=== PATIENT | male | born 1955 | race Caucasian/White ===

== ENCOUNTER 2018-06-12 07:59 | Inpatient (IN) | payer OTHER ==
[2018-06-12] MEDS ORDERED: NS 1,000 ML IV ONE (08:03)
--- NOTE | 2018-06-12 08:11 | EDPHY ---
H & P Time Seen by Provider: 06/12/18 08:03 HPI/ROS: Chief complaint. Stroke activation HPI. 62-year-old male here by EMS with complaint of facial droop, some right- sided weakness, difficulty with speech in following commands. Onset of symptoms 6:30 a.m. Patient had gotten up to go to work at 5:00 a.m. And was normal. He was at work when symptoms started. He is quite certain that symptoms started at 6:30 a.m.. Patient developed what he describes as dizziness to the right eye. No headache. He was confused and having word finding difficulty. Possibly he had some right-sided weakness as well. Patient has had similar symptoms in January 2014 he had left visual field deficit with a normal workup. It resolved and the diagnosis was a typical migraine verses TIA. He arrives per EMS with stable vital signs and symptoms continuing. Patient tells me he has no chest discomfort or trouble breathing. No abdominal pain. He is not on blood thinners ROS 10 systems were reviewed and negative with the exception of the elements mentioned in the history of present illness Past Medical/Surgical History: Past medical history migraines and arthritis of the knee with knee surgery Social History: Single, nonsmoker, no alcohol Smoking Status: Never smoked Physical Exam: General Appearance: Alert well-developed male with stable vital signs in moderate distress Eyes: Pupils equal and round no pallor or injection. ENT, Mouth: Mucous membranes are moist. Respiratory: There are no retractions, lungs are clear to auscultation. Cardiovascular: Regular rate and rhythm. Gastrointestinal: Abdomen is soft and nontender, no masses, bowel sounds normal. Neurological: Awake and alert, sensory and motor exams grossly normal. Patient has word finding difficulty. I do not appreciate facial droop. He moves all extremities however when I asked him to touch might index finger with his index finger and then touches nose with each hand he then touches my index finger with his thumb. He does not follow commands to touch his nose. No obvious weakness to legs. Skin: Warm and dry, no rashes. Musculoskeletal: Neck is supple nontender. Extremities symmetrical, full range of motion. Psychiatric: Patient is oriented X 3, there is no agitation. Constitutional: Initial Vital Signs Temperature (C) 36.5 C 06/12/18 08:12 Heart Rate 75 06/12/18 08:12 Respiratory Rate 18 06/12/18 08:12 Blood Pressure 148/93 H 06/12/18 08:12 O2 Sat (%) 97 06/12/18 08:12 O2 Delivery Mode Room Air Allergies/Adverse Reactions: No Known Allergies Allergy (Verified 06/12/18 09:49) Home Medications: Medication Instructions Recorded Naratriptan HCl [Amerge] 1 mg PO BID PRN #10 tablet 01/28/14 Naproxen Sodium [Aleve 220 MG (*)] 220 mg PO BID PRN 06/12/18 Sodium Chloride 5% [Mitesh-128 5% 1 tue EACHEYE DAILY 06/12/18 (*)] Medical Decision Making - Diagnostics EKG Interpretation: EKG interpreted by me shows normal sinus rhythm normal interval and axis. QRS is normal there is no significant ST elevation or depression. There is no arrhythmia. The rate is 70 Imaging Results: Imaging Impressions Chest X-Ray 06/12/18 08:04 Impression: Mild peribronchial thickening, which can be seen with bronchitis / airways disease or mild fluid overload. Head CT 06/12/18 08:04 Impression: 1. Normal CT brain without contrast. 2. Consider MRI of the brain, if there is continued clinical concern. Findings and recommendations discussed with Emergency Department physician, ANIRUDH CM at 8:13 hour, 06/12/2018. Final report concurs with initial preliminary interpretation. Head CTA 06/12/18 08:29 Impression: 1. No carotid atherosclerotic disease, flow-limiting stenosis, occlusion or dissection. 2. Patent vertebrobasilar system without occlusion or dissection. Measurement of carotid stenosis is based on the residual internal carotid diameter with [place] Symptomatic Carotid Endarterectomy Trial (NASCET) based stenosis levels. CT Angiogram of the Brain Clinical Indications: CVA Technique: CT angiogram of the brain and neck was performed with the uneventful intravenous administration of 85 mL Isovue-370 contrast. Multiplanar reconstructions including 3D reconstructions performed and evaluated on [employer] workstation in order to better evaluate the [place] vessels. Images were manipulated by the radiologist at the computer workstation. Dose reduction techniques were utilized. Findings: Major vessels of the [place] are adequately displayed, demonstrating no evidence of aneurysm, vascular malformation, flow-limiting stenosis, or occlusion. Bilateral cavernous internal carotid arteries and vertebrobasilar system demonstrate occlusion of a distal left MCA M2-3 branch. However, the major proximal vessels including bilateral internal carotid arteries, vertebrobasilar system, bilateral posterior cerebral arteries, bilateral anterior cerebral arteries, and the proximal branches of bilateral M1 middle cerebral arteries are patent without additional thrombus. Superior sagittal sinus, transverse sinuses, and major veins demonstrate no evidence of intraluminal thrombi. Impression: 1. Left MCA distal branch M2/M3 occlusion. 2. No additional proximal occlusions or intraluminal thrombi. 3. Patent bilateral ICA and vertebrobasilar system. Findings and recommendations discussed with Emergency Department physician, Anirudh Cm, at 9:23 a.m., 06/12/2018. Final report concurs with initial preliminary interpretation. Neck CTA 06/12/18 08:29 Impression: 1. No carotid atherosclerotic disease, flow-limiting stenosis, occlusion or dissection. 2. Patent vertebrobasilar system without occlusion or dissection. Measurement of carotid stenosis is based on the residual internal carotid diameter with [place] Symptomatic Carotid Endarterectomy Trial (NASCET) based stenosis levels. CT Angiogram of the Brain Clinical Indications: CVA Technique: CT angiogram of the brain and neck was performed with the uneventful intravenous administration of 85 mL Isovue-370 contrast. Multiplanar reconstructions including 3D reconstructions performed and evaluated on [employer] workstation in order to better evaluate the [place] vessels. Images were manipulated by the radiologist at the computer workstation. Dose reduction techniques were utilized. Findings: Major vessels of the [place] are adequately displayed, demonstrating no evidence of aneurysm, vascular malformation, flow-limiting stenosis, or occlusion. Bilateral cavernous internal carotid arteries and vertebrobasilar system demonstrate occlusion of a distal left MCA M2-3 branch. However, the major proximal vessels including bilateral internal carotid arteries, vertebrobasilar system, bilateral posterior cerebral arteries, bilateral anterior cerebral arteries, and the proximal branches of bilateral M1 middle cerebral arteries are patent without additional thrombus. Superior sagittal sinus, transverse sinuses, and major veins demonstrate no evidence of intraluminal thrombi. Impression: 1. Left MCA distal branch M2/M3 occlusion. 2. No additional proximal occlusions or intraluminal thrombi. 3. Patent bilateral ICA and vertebrobasilar system. Findings and recommendations discussed with Emergency Department physician, Anirudh Cm, at 9:23 a.m., 06/12/2018. Final report concurs with initial preliminary interpretation. Noncontrast head CT shows no hemorrhage in no obvious dense MCA sign. Reviewed by me and discussed with Radiology CT head and neck show a small clot distal branches the M2/M3 occlusion. Reviewed by me and discussed with Procedures: Patient is examined initially on the EMS stretcher. He is then sent to CT. ED Course/Re-evaluation: I consulted discussed the case with Dr. Shields for [facility]. Dr. Dolan also examines the patient and takes history from the patient. Dr. Shields discusses use of tPA with the patient. The patient expresses understanding. Dr. Shields then recommends tPA. Is at about 8:30 a.m. TPA is started. Patient will then be sent back to Radiology for CT angio of head and neck. If there is a large vessel thrombus we will transfer the patient for thrombectomy. On serial evaluations patient is improving. His speech is better. He no longer has visual change in the right eye. He has no headache. He is becoming more neurologically normal Patient and I discussed imaging lab studies. We discussed treatment plan including the recommendation for tPA and then admission. He expresses understanding and agreement Patient's ex- arrives and I reviewed the case with her at her ex-'s permission I consulted and discussed the case with , hospitalist, who agrees to the admission Differential Diagnosis: I considered CVA, TIA, intracranial bleeding, atypical migraine. We opted to treat the patient as a CVA with tPA as the concern was that this is not a atypical migraine which she has had previously and we lose are window of treatment opportunity Critical Care Time: Critical care time exclusive procedures 40 min - Data Points Laboratory Results: Laboratory Results 06/12/18 08:00 06/12/18 08:00 06/12/18 06/12/18 06/12/18 08:37 08:07 08:00 WBC RBC Hgb POC Hgb 16.3 gm/dL gm/dL (13.7-17.5) Hct POC Hct 48 % % (40-51) MCV MCH MCHC RDW Plt Count MPV Neut % (Auto) Lymph % (Auto) [place] % (Auto) Eos % (Auto) Baso % (Auto) Nucleat RBC Rel Count Absolute Neuts (auto) Absolute Lymphs (auto) Absolute Monos (auto) Absolute Eos (auto) Absolute Basos (auto) Absolute Nucleated RBC Immature Gran % Immature Gran # PT INR POC Sodium 141 mEq/L mEq/L (135-145) Sodium 138 mEq/L mEq/L (135-145) POC Potassium 3.8 mEq/L mEq/L (3.3-5.0) Potassium 4.3 mEq/L mEq/L (3.3-5.0) POC Chloride 102 mEq/L mEq/L (97-110) Chloride 104 mEq/L mEq/L (97-110) Carbon Dioxide 25 mEq/l mEq/l (22-31) Anion Gap 9 mEq/L mEq/L (6-14) POC BUN 20 mg/dL mg/dL (7-23) BUN 19 mg/dL mg/dL (7-23) Creatinine 0.9 mg/dL mg/dL (0.7-1.3) POC Creatinine 0.9 mg/dL mg/dL (0.7-1.3) Estimated GFR > 60 Glucose 121 mg/dL H mg/dL (70-100) POC Glucose 118 mg/dL H mg/dL (70-100) Calcium 9.3 mg/dL mg/dL (8.5-10.4) POC Troponin I 0.00 ng/mL ng/mL (0.00-0.08) 06/12/18 06/12/18 08:00 08:00 WBC 5.00 10^3/uL 10^3/uL (3.80-9.50) RBC 5.45 10^6/uL 10^6/uL (4.40-6.38) Hgb 16.3 g/dL g/dL (13.7-17.5) POC Hgb Hct 48.8 % % (40.0-51.0) POC Hct MCV 89.5 fL fL (81.5-99.8) MCH 29.9 pg pg (27.9-34.1) MCHC 33.4 g/dL g/dL (32.4-36.7) RDW 12.5 % % (11.5-15.2) Plt Count 186 10^3/uL 10^3/uL (150-400) MPV 10.1 fL fL (8.7-11.7) Neut % (Auto) 50.4 % % (39.3-74.2) Lymph % (Auto) 28.2 % % (15.0-45.0) [place] % (Auto) 17.4 % H % (4.5-13.0) Eos % (Auto) 2.6 % % (0.6-7.6) Baso % (Auto) 0.8 % % (0.3-1.7) Nucleat RBC Rel Count 0.0 % % (0.0-0.2) Absolute Neuts (auto) 2.52 10^3/uL 10^3/uL (1.70-6.50) Absolute Lymphs (auto) 1.41 10^3/uL 10^3/uL (1.00-3.00) Absolute Monos (auto) 0.87 10^3/uL H 10^3/uL (0.30-0.80) Absolute Eos (auto) 0.13 10^3/uL 10^3/uL (0.03-0.40) Absolute Basos (auto) 0.04 10^3/uL 10^3/uL (0.02-0.10) Absolute Nucleated RBC 0.00 10^3/uL 10^3/uL (0-0.01) Immature Gran % 0.6 % % (0.0-1.1) Immature Gran # 0.03 10^3/uL 10^3/uL (0.00-0.10) PT 12.6 SEC SEC (12.0-15.0) INR 0.92 (0.83-1.16) POC Sodium Sodium POC Potassium Potassium POC Chloride Chloride Carbon Dioxide Anion Gap POC BUN BUN Creatinine POC Creatinine Estimated GFR Glucose POC Glucose Calcium POC Troponin I Medications Given: Discontinued Medications Alteplase, Recombinant (Activase) 75.33 mg 0.81 mg/kg (75.33 mg) IV ONCE ONE PRN Reason: Protocol Stop: 06/12/18 08:30 Last Admin: 06/12/18 08:35 Dose: 75.33 mg Alteplase, Recombinant (Activase) 50 mg IVP EDNOW ONE Stop: 06/12/18 08:30 Last Admin: 06/12/18 08:49 Dose: 50 mg Sodium Chloride (Ns) 1,000 mls @ 0 mls/hr IV ONCE ONE; Wide Open PRN Reason: Protocol Stop: 06/12/18 08:04 Last Admin: 06/12/18 08:20 Dose: 1,000 mls Point of Care Test Results: Chemistry 06/12/18 06/12/18 08:37 08:07 POC Sodium 141 mEq/L mEq/L (135-145) POC Potassium 3.8 mEq/L mEq/L (3.3-5.0) POC Chloride 102 mEq/L mEq/L (97-110) POC BUN 20 mg/dL mg/dL (7-23) POC Creatinine 0.9 mg/dL mg/dL (0.7-1.3) POC Glucose 118 mg/dL H mg/dL (70-100) POC Troponin I 0.00 ng/mL ng/mL (0.00-0.08) ISTAT H&H 06/12/18 08:07 POC Hgb 16.3 gm/dL gm/dL (13.7-17.5) POC Hct 48 % % (40-51) Departure - Departure Disposition: [facility] Inpatient Acute Clinical Impression: Acute ischemic stroke, Visual field cut Condition: Good
[2018-06-12 08:19] LABS: PLATELET COUNT 186 10^3/uL (150-400)
[2018-06-12 08:27] LABS: INR 0.92 (0.83-1.16); PROTIME(PATIENT) 12.6 SEC (12.0-15.0)
[2018-06-12] MEDS ORDERED: ALTEPLASE 100 MG/100 ML VIAL IV ONE ×2 (08:29)
[2018-06-12] MEDS ORDERED: IOPAMIDOL (ISOVUE 370) 100 ML BTL IV ONE (08:31)
--- NOTE | 2018-06-12 08:33 | PDCONSULT ---
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 He has a normal head CT time of eval. He is having some intermittent issues following commands but otherwise with good neurological exam. He woke up at 5:00 am normal. At 6:30 he felt right face and arm "water" (which is not the word he was trying to say). Possible tPA candidate: :00 am [facility]-- Past Medical History: Migraine Past Surgical History: knee surgery Exam Language: expressive aphasia, mild comprehension difficulty as well Cranial Nerves: extra ocular movements intact, no facial droop Motor: normal strength, normal bulk, no drift Sensory: normal sensation Cerebellar: normal finger nose NIHSS Time (): 06/12/2018 08:20 LOC 1a: 0 = Alert; keenly responsive LOC 1b: 1 = Answers one question correctly LOC Commands: 0 = Performs both tasks correctly Best Gaze: 0 = Normal Visual: 0 = No visual loss Facial Palsy: 0 = Normal symmetrical movements Motor Arm L: 0 = No drift; limb holds 90 (or 45) degrees for full 10 seconds Motor Arm R: 0 = No drift; limb holds 90 (or 45) degrees for full 10 seconds Motor Leg L: 0 = No drift; leg holds 30-degree position for full 5 seconds Motor Leg R: 0 = No drift; leg holds 30-degree position for full 5 seconds Limb Ataxia: 0 = Absent Sensory: 0 = Normal; no sensory loss Best Language: 1 = Ctle-fa-ggvdzozb aphasia; some obvious loss of fluency or facility of comprehension Dysarthria: 0 = Normal Extinction + Inattention: 0 = No abnormality NIHSS: [address]: no bleed Assessment: Acute Ischemic Stroke, less likely migraine equivalent without headache. Plan Lytic/Intervention: possible candidate for, IA intervention Time IV tPA Recommended (): 06/12/2018 08:25 Labs: HgbA1c, Lipid Panel Imaging: CTA Head and Neck STAT, Please call me back with results TRICIA if there are signs of occlusion or dissection Diagnostic test: echocardiogram with bubble Therapy/Eval: NPO until cleared by swallow evaluation, PT/OT, Speech/Swallow therapy consult tPA Administration Recommendations: I have reviewed the risks/benefits of tPA with family &/or patient. They understand that there is a potential of life threatening hemorrhagic complication from tPA, but feel that benefits outweigh risks and want to proceed with administration of tPA, BP goal< 180/100 for 24hrs post tPA administration, Use Labetolol 10-20mg IV prn or Nicardipine gtt to maintain BP parameters, No antiplatelets or anticoagulants for next 24 hrs unless indicated for emergent IA procedure or other life threatening situation, ICU admission, Call back if there is any decline in neurological condition Other: LDL goal less than 70, permissive HTN, telemetry monitoring, I have discussed my recommendations with the referring provider Disposition: transfer to ICU Logistics Telemedicine: Interactive 2 way audio and visual telecommunication technology was utilized during this visit. Provider Location: [place]
[2018-06-12] MEDS: ALTEPLASE 50 MG/50 ML VIAL IVP ONE ×2 (08:34→08:49)
[2018-06-12] MEDS ORDERED: LABETALOL HCL 5 MG/ML 20 ML MDV IVP PRN (11:00)
--- NOTE | 2018-06-12 12:44 | PDGENHP ---
History and Physical - Chief Complaint right arm weakness, trouble speaking - History of Present Illness 62yo M with history of migraines with aura presents with acute onset difficulty speaking, right blurry vision, and right arm weakness/discoordination. These symptoms started at 630am. He woke up 5am and was normal. He had been in usual state of health before this. EMS was called and he was brought to the ED where CTA of his head/neck showed a thrombus in his distal L MCA (M2/M3). Tele- neurology was consulted and he received systemic tpa at 835am. His symptoms have dramatically improved afterwards but he is still endorsing some trouble speaking and intermittent right blurry vision. He is being admitted to the ICU for post-tpa monitoring. Of note, he was hospitalized in 2013 for vision changes felt to be due to either migraine or TIA. CTA head/neck and TTE at that time were normal. He has no history of afib. History Information - Allergies/Home Medication List Allergies/Adverse Reactions: No Known Allergies Allergy (Verified 06/12/18 09:49) Home Medications: Naproxen Sodium [Aleve 220 MG (*)] 220 mg PO BID PRN 06/12/18 [Last Taken Unknown] Sodium Chloride 5% [Mitesh-128 5% (*)] 1 ute EACHEYE DAILY 06/12/18 [Last Taken Unknown] I have personally reviewed and updated: family history, medical history, social history, surgical history - Past Medical History Additional medical history: migraines with aura, recurrent R eye erosion - Surgical History Additional surgical history: Right knee arthroscopy - Family History Additional family history: No family history of CAD or CVA - Social History Smoking Status: Never smoked Alcohol Use: Rarely Drug Use: None Additional social history: Lives alone in [place]. 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) Review of Systems Review of Systems: ROS: 10pt was reviewed & negative except for what was stated in HPI & below Physical Exam Physical Exam: Temp Pulse Resp BP Pulse Ox 36.7 C 75 16 132/84 H 97 06/12/18 10:22 06/12/18 12:15 06/12/18 12:15 06/12/18 12:15 06/12/18 12:15 Constitutional: no apparent distress, appears nourished, not in pain Eyes: PERRL, anicteric sclera, EOMI Ears, Nose, Mouth, Throat: moist mucous membranes, hearing normal, ears appear normal, no oral mucosal ulcers Cardiovascular: regular rate and rhythym, no murmur, rub, or gallop, No edema Respiratory: no respiratory distress, no rales or rhonchi, clear to auscultation Gastrointestinal: normoactive bowel sounds, soft, non-tender abdomen, no palpable masses Genitourinary: no bladder fullness, no bladder tenderness Skin: warm, normal color, no rashes or abrasions, no fluctuance, no induration, No mottled Musculoskeletal: full muscle strength, no muscle tenderness, normal joint ROM, no joint effusions Neurologic: AAOx3, sensation intact bilaterally, CN II-XII Intact, other ( intermittent syntactical errors but otherwise fluid speech), No weakness, No numbness, No pronator drift, No asterixes, No facial droop Psychiatric: interacting appropriately, not anxious, not encephalopathic, thought process linear Lab Data & Imaging Review 06/12/18 08:00 06/12/18 08:00 WBC 5.00 10^3/uL (3.80-9.50) 06/12/18 08:00 RBC 5.45 10^6/uL (4.40-6.38) 06/12/18 08:00 Hgb 16.3 g/dL (13.7-17.5) 06/12/18 08:00 POC Hgb 16.3 gm/dL (13.7-17.5) 06/12/18 08:07 Hct 48.8 % (40.0-51.0) 06/12/18 08:00 POC Hct 48 % (40-51) 06/12/18 08:07 MCV 89.5 fL (81.5-99.8) 06/12/18 08:00 MCH 29.9 pg (27.9-34.1) 06/12/18 08:00 MCHC 33.4 g/dL (32.4-36.7) 06/12/18 08:00 RDW 12.5 % (11.5-15.2) 06/12/18 08:00 Plt Count 186 10^3/uL (150-400) 06/12/18 08:00 MPV 10.1 fL (8.7-11.7) 06/12/18 08:00 Neut % (Auto) 50.4 % (39.3-74.2) 06/12/18 08:00 Lymph % (Auto) 28.2 % (15.0-45.0) 06/12/18 08:00 [place] % (Auto) 17.4 % (4.5-13.0) H 06/12/18 08:00 Eos % (Auto) 2.6 % (0.6-7.6) 06/12/18 08:00 Baso % (Auto) 0.8 % (0.3-1.7) 06/12/18 08:00 Nucleat RBC Rel Count 0.0 % (0.0-0.2) 06/12/18 08:00 Absolute Neuts (auto) 2.52 10^3/uL (1.70-6.50) 06/12/18 08:00 Absolute Lymphs (auto) 1.41 10^3/uL (1.00-3.00) 06/12/18 08:00 Absolute Monos (auto) 0.87 10^3/uL (0.30-0.80) H 06/12/18 08:00 Absolute Eos (auto) 0.13 10^3/uL (0.03-0.40) 06/12/18 08:00 Absolute Basos (auto) 0.04 10^3/uL (0.02-0.10) 06/12/18 08:00 Absolute Nucleated RBC 0.00 10^3/uL (0-0.01) 06/12/18 08:00 Immature Gran % 0.6 % (0.0-1.1) 06/12/18 08:00 Immature Gran # 0.03 10^3/uL (0.00-0.10) 06/12/18 08:00 PT 12.6 SEC (12.0-15.0) 06/12/18 08:00 INR 0.92 (0.83-1.16) 06/12/18 08:00 POC Sodium 141 mEq/L (135-145) 06/12/18 08:07 Sodium 138 mEq/L (135-145) 06/12/18 08:00 POC Potassium 3.8 mEq/L (3.3-5.0) 06/12/18 08:07 Potassium 4.3 mEq/L (3.3-5.0) 06/12/18 08:00 POC Chloride 102 mEq/L (97-110) 06/12/18 08:07 Chloride 104 mEq/L (97-110) 06/12/18 08:00 Carbon Dioxide 25 mEq/l (22-31) 06/12/18 08:00 Anion Gap 9 mEq/L (6-14) 06/12/18 08:00 POC BUN 20 mg/dL (7-23) 06/12/18 08:07 BUN 19 mg/dL (7-23) 06/12/18 08:00 Creatinine 0.9 mg/dL (0.7-1.3) 06/12/18 08:00 POC Creatinine 0.9 mg/dL (0.7-1.3) 06/12/18 08:07 Estimated GFR > 60 06/12/18 08:00 Glucose 121 mg/dL (70-100) H 06/12/18 08:00 POC Glucose 118 mg/dL (70-100) H 06/12/18 08:07 Calcium 9.3 mg/dL (8.5-10.4) 06/12/18 08:00 POC Troponin I 0.00 ng/mL (0.00-0.08) 06/12/18 08:37 Interpretation: CT head non-con: normal. CTA head/neck: left MCA distal branch M2/M3 occlusion, patent bilateral ICA and vertebrobasilar systems Visualized and Interpreted EKG results: Yes EKG additional interpertation: ECG: NSR, no ischemia Assessment & Plan Assessment: 62yo M with history of migraines with aura presents with acute onset difficulty speaking, right blurry vision, and right arm weakness/discoordination found to have distal L MCA occluding thrombus now s/p tpa. Plan: 1. Acute ischemic CVA: Symptoms improved but not resolved after systemic tpa. Still with some mild aphasia. Unclear source of thrombus, carotids and vertebrobasilar systems look ok. 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 Migraines with aura: Holding triptan. Followed by Dr Kilo Bell. VTE ppx: SCDs, no pharmacologic Code: full Diet: regular if passes bedside swallow eval Dispo: Admit under observation to ICU
[2018-06-12] MEDS ORDERED: ACETAMINOPHEN 325 MG TAB PO PRN (12:58)
--- NOTE | 2018-06-12 14:29 | PDMN ---
Medical Necessity Medical necessity: MCG: M83 stroke: ischemic -2 days: acute ischemic CVA symptoms not fully resolved after systemic tPA. further monitoring and eval needed.
--- NOTE | 2018-06-12 14:33 | ECHO ---
[email or web address] [address] Main: [phone] Fax: Transthoracic Echocardiogram Name: MILES HOLLINGSWORTH MR#: [id number] Study Date: 06/12/2018 Study Time: 01:39 PM Date of : 1955 Age: 62 year(s) Height: 182.9 cm (72 in.) Weight: 92.53 kg (204 lb.) BSA: 2.15 m2 Gender: Male Examination: Echo with Agitated Saline Indication: ischemic stroke Image Quality: Technically Difficult Contrast: I.V. dose of agitated saline Requested by: Lucio Gilbert BP: 129 mmHg/80 mmHg Heart Rate: Rhythm: Indication: ischemic stroke Procedure Staff Billing Machine Operator: Kika Saldaña RUST Reading Physician: Jamir Francisco MD Requesting Provider: Conclusions: Normal size left ventricle. No LV hypertrophy. Normal global systolic LV function. EF is 65 %. No regional wall motion abnormality. Normal diastolic LV function. An agitated saline study was performed and was negative for intracardiac shunting. Trivial to mild mitral regurgitation. The aortic valve is tri-leaflet and functions normally. Mild aortic valve regurgitation is present. Trivial to mild tricuspid valve regurgitation. There is no pulmonic regurgitation seen. Normal size ascending aorta measuring 3.1 cm. No pericardial effusion. In comparison to prior echocardiography from January 2014 no clear changes have been noted. Measurements: Chambers Valvular Assessment AV/MV Valvular Assessment TV/PV Normal Normal Normal Name Value Range Name Value Range Name Value Range Ao Nasreen (MM): 2.9 cm (2.2 cm-3.7 AV Vmax: 1.52 m/s (1 m/s-1.7 TR Vmax: 2.24 mm/s ( - ) cm) m/s) TR PGmax: 20 mmHg ( - ) IVSd (2D): 1.1 cm (0.6 cm-1.1 AV maxP mmHg ( - ) syst. PAP: 25 mmHg ( - ) cm) LVOT Vmax: 1.37 m/s (0.7 m/s-1.1 PV Vmax: 1.44 m/s (0.6 m/s-0.9 LVDd (2D): 4.2 cm (4.2 cm-5.9 m/s) m/s) cm) MV E Vmax: 0.75 m/s ( - ) PV PGmax: 8 mmHg ( - ) LVDs (2D): 2.6 cm (2.1 cm-4 MV A Vmax: 0.71 m/s ( - ) cm) MV E/A: 1.06 ( - ) LVPWd (2D): 0.9 cm (0.6 cm-1 cm) Patient: MILES HOLLINGSWORTH Study Date: 06/12/2018 Page 1 of 2 01:39 PM LVEF (BP): 65 % (>=55 %) RVDd(2D): 3.5 cm (1.9 cm-3.8 cmmm) Continued Measurements: Chambers Valvular Assessment AV/MV Valvular Assessment TV/PV Name Value Name Value Name Value LADs: 3.4 cm MV DecTime: 289 m/s CVP (est.): 5 mmHg LADs Lon.7 cm MV E' Septal: 0.09 m/s LA Area: 11.3 cm2 MV E/E' Septal: 8.60 LA Volume: 28 ml MV E/E' Lateral: 9.40 LA Volume Index: 13.0 ml/m2 TAPSE: 2.6 cm Additional Vessels Name Value Ao Ascendin.1 cm Findings: Left Ventricle: Normal size left ventricle. No LV hypertrophy. Normal global systolic LV function. EF is 65 %. No regional wall motion abnormality. Normal diastolic LV function. Right Ventricle: Normal size right ventricle. Normal RV function. Left Atrium: The left atrium is normal in size. An agitated saline study was performed and was negative for intracardiac shunting. Right Atrium: The right atrium is normal in size. Mitral Valve: The mitral valve is normal in appearance and function. Trivial to mild mitral regurgitation. No mitral stenosis is present. Aortic Valve: The aortic valve is tri-leaflet and functions normally. Mild aortic valve regurgitation is present. No aortic valve stenosis is present. Tricuspid Valve: The tricuspid valve is normal in appearance and function. Trivial to mild tricuspid valve regurgitation. Right ventricular systolic pressure measures 25mmHg. The pulmonary artery pressure is normal. Pulmonic Valve: Pulmonary valve not well visualized. There is no pulmonic regurgitation seen. Aorta: Normal size aortic root measuring 2.9 cm. Normal size ascending aorta measuring 3.1 cm. IVC: Normal size and course of the IVC. Pericardium: No pericardial effusion. (No Signature Object) Patient: MILES HOLLINGSWORTH Study Date: 06/12/2018 Page 2 of 2 01:39 PM [id number]
--- NOTE | 2018-06-12 15:17 | CPEKG ---
Test Reason : OPEN Blood Pressure : / mmHG Vent. Rate : 070 BPM Atrial Rate : 068 BPM P-R Int : 171 ms QRS Dur : 093 ms QT Int : 400 ms P-R-T Axes : 062 015 016 degrees QTc Int : 432 ms Sinus rhythm Confirmed by Brayden Cm ([id number]) on 06/12/2018 3:16:32 PM Referred By: Confirmed By:Brayden Cm
--- NOTE | 2018-06-12 17:33 | PDCONSULT ---
Tissue Technologist Note: ASSESSMENT 62-year-old male with acute ischemic left MCA CVA status post systemic tPA at 0835. # acute CVA, left distal MCA thrombus # hypercoagulability # migraines with aura # knee pain PLAN # monitor for signs and symptoms of bleeding # neuro checks per protocol # hold all antiplatelets and anticoagulation next # systolic blood pressure goal less than 180, antihypertensives as needed # MRI brain, TTE with bubble # lipids, A1c # PTOT after patient is cleared to ambulate # anticipate aspirin 81 mg p.o. Daily and statin therapy peripherally atorvastatin for cost efficacy at time of discharge # needs outpatient follow-up for left knee pain # Feeding - advance diet as tolerated # Analgesia APAPl # Sedation none # Thromboprophylaxis - SCDs # Head of bed elevated # Ulcer prophylaxis - not indicated # Glucose SSI # Skin no skin breakdown # Delirium - delirium precautions EVENTS 04/12/2018 tPA via peripheral IV 100 mg at 0835 a.m. IMAGING I reviewed interpreted patient's imaging as well as for radiographic agreed reads 06/12/2018 CTA head with distal thrombus in left MCA, no mass, no hemorrhage Consult I was asked by Dr. Gilbert of [facility] to evaluate this patient for ICU care in the setting of acute CVA requiring tPA administration Chief complaint Difficult speech incoordination HPI Bell is a very pleasant 62-year-old male with a history of migraines and an old left knee injury developed dysarthria and right-sided weakness as well as difficulties with and eye coordination. Symptoms started approximately 6:30 a.m.. Patient was brought in by ambulance and abruptly underwent CT angiogram of his head which demonstrated left distal MCA thrombus without evidence of infarction. Patient received systemic tPA 8:35 a.m.. Since in his paper symptoms have continued to improve. Denies fevers chills new headaches nausea vomiting syncope. Per report 1 possible TIA but no definitive stroke. No prior history of CVA or AFib Allergies No known drug allergies Medical history migraines oral, prior knee injury Surgical history right knee arthroscopy Family history no family history of CAD Social history , lives alone Mead works at [employer]. Has to grown children. Never smoker Review of systems a comprehensive review of systems is obtained is negative except as per HPI Physical exam Vitals afebrile, pulse 75 normal sinus rhythm blood pressure 132/84, pulse ox 97 % respiratory 16 GEN: NAD, up in chair, interactive NEURO: A&Ox3, CN 2-12 GI, 5/5 strength bilateral lower or upper extremities. Good rfbprr-[id number]-gsigse HEENT: PERRL, EOMI, MMM, OP clear NECK: supple, trachea midline CHEST normal shape, no pes excavatum CVS: rrr no m/r/g PULM: CTA B, no wheezes/rales/rhonchi ABD: soft, NT, ND, NABS EXT: no swelling, no cyanosis, full ROM SKIN: warm, dry, intact, no rash PSYCH CAM negative, appropriate affect Laboratory data reviewed significant for platelets 121, hemoglobin 16.3. Imaging as above
[2018-06-12] MEDS: SODIUM CHLORIDE 5% 3.5 GM OPHT.OINT EACHEYE SCH (21:44)
[2018-06-13 04:43] LABS: PLATELET COUNT 158 10^3/uL (150-400)
--- NOTE | 2018-06-13 10:18 | NEUROPROG ---
Assessment: [id number] - Neurology Consult: - CC: Dr. Lucio Gilbert consulted neurology for stroke. Results placed in EMR for his review. - HPI: Pt noted sudden onset of right arm weakness, speech problems and right sided visual blurriness on 06/12/18 at 6:30 am. He was brought to [facility] ER. CTA head/ neck showed a left distal MCA M2/M3 thrombus. Head CT showed no bleed. He was seen by teleneurology and the recommended TPA for acute stroke which he was given w/o complications. His symptoms improved significantly after the TPA but he still had some mild speech issues and right visual blurriness. Pt then placed in ICU. He was not on aspirin or statin prior to this event. His echocardiogram and telemetry did not find a cause for the stroke. I initially saw the patient on 06/13/18. He felt his symptoms were nearly completely resolved but still felt speech was slightly off. His neurologic exam on was normal with NIH SS 0. Head CT and brain MRI pending. - PMHx: migraines, recurrent R eye erosion, R knee arthroscopy - SHx: no tobacco FHx: no CAD or CVA - ROS: Pt denied acute fever, total vision loss, active severe chest pain, respiratory failure, total body severe rash, total bowel/bladder incontinence, psychosis, active seizures, or active bleeding - O: VS reviewed General: Alert Eyes: Fundoscopic exam not able to visualize optic disks CV: Heart RRR, no murmur, no carotid bruit Lungs: Clear to auscultation bilaterally, no rhonchi or rales Neuro: - Mental: . Oriented x person/place/date . concentration appears normal . speech fluency/comprehension normal . memory appears normal . fund of knowledge appear intact - Cranial Nerves: . II: PERRL, VFFTC . III/IV/: EOMI, no nystagmus, normal smooth pursuits, no Ptosis . V: facial sensation intact to LT . VII: face symmetric to eye closure and smile . VIII: hearing intact to conversation . IX/X: uvula raises symmetrically . XI: SCM 5/5 B/L strength . XII: tongue protrudes midline w/nl strength - Motor: . Tone: normal tone in all 4 extremity . 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 Left MCA distal M2/M3 thrombus causing Sudden Right arm weakness, speech problems, blurry vision on 06/12/18: Concern for stroke given left MCA M2/M3 distal thrombus noted on head/neck CTA (no carotid disease seen) so patient was given TPA on 06/12/18 w/improvement of symptoms. As his symptoms were nearly resolved with NIH SS 0 and his thrombus was distal in the left MCA M2/M3 branch I felt any intra-arterial procedure to remove it was too high risk for the possible gain. TTE and telemetry did not show any afib. Pt was not on statin or aspirin prior to event so will plan on starting aspirin 81 mg qd and a statin (LDL goal < 70, his was 103) prior to discharge. - Plan: - Head CT 24 hours after TPA to look for bleed, if none found then begin aspirin 81 mg qd for stroke prevention - Blood pressure goal < 180/100 x 48 hours then < 140/90 snf - LDL goal < 70 (103), recommend beginning a statin - H1AC goal < 7.0 (5.4) - Brain MRI wo - Recommend patient have LINQ monitor placed by cardiology prior to hospital discharge to assess for any paroxysmal afib as cause of stroke - PT/OT/Speech to determine any rehab needs - F/U 1-5 weeks after hospital discharge with the patients neurologist, Dr. Oswaldo Bell Objective: Vital Signs Temp Pulse Resp BP Pulse Ox 36.5 C 78 17 114/71 98 06/13/18 08:00 06/13/18 10:00 06/13/18 10:00 06/13/18 10:00 06/13/18 10:00 Laboratory Results 06/13/18 04:00 06/13/18 04:00 06/12/18 06/13/18 06/14/18 05:59 05:59 05:59 Intake Total 2400 Output Total 1050 Balance 1350 PT 12.6 SEC (12.0-15.0) 06/12/18 08:00 INR 0.92 (0.83-1.16) 06/12/18 08:00 Allergies/Adverse Reactions: No Known Allergies Allergy (Verified 06/12/18 09:49)
[2018-06-13] MEDS: SODIUM CHLORIDE 5% 3.5 GM OPHT.OINT EACHEYE SCH ×2 (12:03→20:36)
--- NOTE | 2018-06-13 14:02 | HOSPPROG ---
Hospitalist Progress Note Assessment/Plan: 62yo M with history of migraines with aura presents with acute onset difficulty speaking, right blurry vision, and right arm weakness/discoordination found to have distal L MCA occluding thrombus now s/p tpa. 1. Acute ischemic CVA: Symptoms essentially resolved - S/p tpa on 06/12 - Repeat head CT today without bleed - MRI shows 2 areas or cortical infarction, raising suspicion for embolic source - telemetry quiet - TTE normal, no PFO - Goal BP <140/90 - Start aspirin 81mg daily and atorvastatin 40mg daily (LDL 103) - PT/OT/SURFACE HYDROLOGIST for rehab needs - Consulting cardiology for consideration of LINQ implantation prior to discharge 2. Migraines with aura: Holding triptan. Followed by Dr Kilo Bell. VTE ppx: SCDs Code: full Diet: regular Dispo: Remain inpatient, transfer to med/surg floor, anticipated date of discharge tomorrow 06/14 Subjective: Feeling great. Speech improved. No arm weakness. Did well with OT. SURFACE HYDROLOGIST had identified a few areas where he was having trouble Objective: Vital Signs Temp Pulse Resp BP Pulse Ox 36.7 C 75 22 H 125/69 H 100 06/13/18 12:00 06/13/18 12:00 06/13/18 12:00 06/13/18 12:00 06/13/18 12:00 Laboratory Results 06/13/18 04:00 06/13/18 04:00 06/12/18 06/13/18 06/14/18 05:59 05:59 05:59 Intake Total 2400 Output Total 1050 Balance 1350 PT 12.6 SEC (12.0-15.0) 06/12/18 08:00 INR 0.92 (0.83-1.16) 06/12/18 08:00 - Physical Exam Constitutional: no apparent distress, appears nourished, not in pain Eyes: PERRL, anicteric sclera, EOMI Ears, Nose, Mouth, Throat: moist mucous membranes, hearing normal, ears appear normal, no oral mucosal ulcers Cardiovascular: regular rate and rhythym, no murmur, rub, or gallop, No edema Respiratory: no respiratory distress, no rales or rhonchi, clear to auscultation Gastrointestinal: normoactive bowel sounds, soft, non-tender abdomen, no palpable masses Genitourinary: no bladder fullness, no bladder tenderness, no renal bruits Skin: no rashes or abrasions, no fluctuance, no induration Musculoskeletal: full muscle strength, no muscle tenderness, normal joint ROM Neurologic: AAOx3, sensation intact bilaterally, other (speech better), No weakness, No numbness Psychiatric: interacting appropriately, not anxious, not encephalopathic, thought process linear ICD10 Worksheet Patient Problems: Problems Problem Status Onset Acute ischemic stroke Acute Visual field cut Acute Migraine Acute
--- NOTE | 2018-06-13 14:11 | PDINTPN ---
Classifier Operator Progress Note Assessment/Plan: ASSESSMENT 62-year-old male with acute ischemic left MCA CVA status post systemic tPA at 0930 # acute CVA, left distal MCA thrombus # hypercoagulability # migraines with aura # knee pain PLAN # monitor for signs and symptoms of bleeding # neuro checks per protocol # ASA 81 and atorvastatin 40 mg # systolic blood pressure goal less than 180, antihypertensives as needed # PTOT # needs outpatient follow-up for left knee pain # Feeding - regular diet # Analgesia APAP # Sedation none # Thromboprophylaxis - SCDs # Head of bed elevated # Ulcer prophylaxis - not indicated # Glucose SSI # Skin no skin breakdown # Delirium - delirium precautions EVENTS 04/12/2018 tPA via peripheral IV 100 mg at 0930 Subjective: Admitted to hospital yesterday, received IV tPA with no interval improvement symptoms. No bleeding overnight. MRI this morning confirms acute infarcts. Patient denies new neurological deficits. Feeling improved today no headaches fevers chills bruising nausea vomiting chest pain shortness of breath Objective: Vital Signs Temp Pulse Resp BP Pulse Ox 36.7 C 75 22 H 125/69 H 100 06/13/18 12:00 06/13/18 12:00 06/13/18 12:00 06/13/18 12:00 06/13/18 12:00 Laboratory Results 06/13/18 04:00 06/13/18 04:00 06/12/18 06/13/18 06/14/18 05:59 05:59 05:59 Intake Total 2400 Output Total 1050 Balance 1350 PT 12.6 SEC (12.0-15.0) 06/12/18 08:00 INR 0.92 (0.83-1.16) 06/12/18 08:00 I reviewed interpreted patient's radiographic images as well as formal radiology reads 06/13/2018 MRI brain s with evidence of acute infarction 06/12/2018 CTA head- distal MCA occlusion Physical Exam - Physical Exam General Appearance: alert EENT: PERRL/EOMI, normal ENT inspection Neck: non-tender, full range of motion Respiratory: chest non-tender, lungs clear, normal breath sounds, No respiratory distress Cardiac/Chest: normal peripheral pulses, regular rate, rhythm, No edema Abdomen: non-tender, soft Back: Normal inspection Skin: normal color, warm/dry, No cyanosis Extremities: normal range of motion, non-tender Neuro/Psych: no motor/sensory deficits, alert, normal mood/affect, oriented x 3 , No motor weakness ICD10 Worksheet Patient Problems: Problems Problem Status Onset Acute ischemic stroke Acute Visual field cut Acute Migraine Acute
[2018-06-13] MEDS: ATORVASTATIN CALCIUM 40 MG TAB PO SCH (14:22)
[2018-06-13] MEDS: ASPIRIN 81 MG CHEWABLE TAB PO SCH (14:22)
--- NOTE | 2018-06-13 14:29 | ASMTCMCOM ---
CM Note CM Note Notes: Pt admitted after experiencing a cva. He lives at home alone and works for the [employer]. Therapy evals pending. DC Plan: TBD Date Signed: 06/13/2018 02:29 PM Electronically Signed By:Baylee Dugan RN
[2018-06-14] MEDS: ASPIRIN 81 MG CHEWABLE TAB PO SCH ×2 (08:00→14:57)
[2018-06-14] MEDS: SODIUM CHLORIDE 5% 3.5 GM OPHT.OINT EACHEYE SCH ×2 (09:00→14:58)
[2018-06-14] MEDS: ATORVASTATIN CALCIUM 40 MG TAB PO SCH ×2 (09:00→14:57)
[2018-06-14] MEDS ORDERED: LIDOCAINE 1% 300 MG/30 ML SDV SC ONE (10:01)
--- NOTE | 2018-06-14 11:19 | NEUROPROG ---
Assessment: [id number] - Neurology Consult: - CC: F/U for stroke - Narrative Summary: Pt noted sudden onset of right arm weakness, speech problems and right sided visual blurriness on 06/12/18 at 6:30 am. He was brought to [facility] ER. CTA head/ neck showed a left distal MCA M2/M3 thrombus. Head CT showed no bleed. He was seen by teleneurology and the recommended TPA for acute stroke which he was given w/o complications. His symptoms improved significantly after the TPA but he still had some mild speech issues and right visual blurriness. Pt then placed in ICU. He was not on aspirin or statin prior to this event. His echocardiogram and telemetry did not find a cause for the stroke. I initially saw the patient on 06/13/18. He felt his symptoms were nearly completely resolved but still felt speech was slightly off. His neurologic exam on was normal with NIH SS 0. Head CT and brain MRI pending. - HPI: F/U 06/14/18. Brain MRI showed small strokes. Head CT showed no bleed. Pt doing well. No new complaints. No further inpt w/u needed from neurology standpoint, neurology will sign off but see pt in f/u in 1-6 weeks in clinic. Pt awaiting LINQ monitor placement. - PMHx: migraines, recurrent R eye erosion, R knee arthroscopy - SHx: no tobacco FHx: no CAD or CVA - ROS: Pt denied acute fever, total vision loss, active severe chest pain, respiratory failure, total body severe rash, total bowel/bladder incontinence, psychosis, active seizures, or active bleeding - Labs: 06/12/18- INR 0.92, H1AC 5.4 06/13/18- CBC wnl, Chem Anion gap 5L, LDL 103 - Rads: 06/12/18- Head CT: normal 06/12/18- CTA head/neck: left MCA distal thrombus in M2/M3 region 06/12/18- TTE: EF 65%, no thrombus reported 06/12/18- 24 hour telemetry: no afib noted 06/13/18- Head CT: no bleed seen post-TPA 24 hours 06/13/18- Brain MRI wo: Two acute infarcts on the left, with a small cortical infarct in the peripheral left temporal, occipital, and parietal junction and small cortical infarct at the posterior left insular cortex. - Assessment: 1. Left MCA distribution stroke causing Sudden Right arm weakness, speech problems, blurry vision on 06/12/18: left MCA M2/M3 distal thrombus noted on head/neck CTA (no carotid disease seen) so patient was given TPA on 06/12/18 w/ improvement of symptoms. Brain MRI wo on 06/13/18 showed Two acute infarcts on the left, with a small cortical infarct in the peripheral left temporal, occipital, and parietal junction and small cortical infarct at the posterior left insular cortex. TTE and telemetry did not show any afib. Pt was not on statin or aspirin prior to event so will plan on starting aspirin 81 mg qd and a statin (LDL goal < 70, his was 103) prior to discharge. - Plan: - Blood pressure goal < 180/100 x 24 hours then < 140/90 jail - LDL goal < 70 (103), recommend beginning a statin - H1AC goal < 7.0 (5.4) - Recommend patient have LINQ monitor placed by cardiology prior to hospital discharge to assess for any paroxysmal afib as cause of stroke - PT/OT/Speech to determine any rehab needs - F/U 1-5 weeks after hospital discharge with the patients neurologist, Dr. Oswaldo Bell - No further neurology inpatient workup needed, neurology amanda sign off - 35 min spent with patient, majority of time spent counseling on his stroke and prevention strategies as well as prognosis. Objective: Vital Signs Temp Pulse Resp BP Pulse Ox 36.7 C 61 13 136/84 H 94 06/14/18 10:10 06/14/18 10:10 06/14/18 10:10 06/14/18 10:10 06/14/18 10:10 Laboratory Results 06/13/18 04:00 06/13/18 04:00 06/13/18 06/14/18 06/15/18 05:59 05:59 05:59 Intake Total 2400 Output Total 1050 Balance 1350 PT 12.6 SEC (12.0-15.0) 06/12/18 08:00 INR 0.92 (0.83-1.16) 06/12/18 08:00 Allergies/Adverse Reactions: No Known Allergies Allergy (Verified 06/12/18 09:49)
--- NOTE | 2018-06-14 11:52 | PDGENHP ---
History & Physical Chief Complaint: LINQ placement for evaluation of cause of probable embolic CVA History of Present Illness: Magan is a 62 year old patient with a history of recent stroke that is thought to be potentially embolic and secondary to undiagnosed atrial fibrillation. The patient is recommended by neurologist Dr. Delatorre to have a LINQ IQ loop recorder device inserted. Pertinent Past, Social, Family History: CVA s/p TPA also evidence of multiple foci of possible prior embolic stroke Relevant Physical Exam: awake alert cooperative heart regular rate rhythm as well as lungs CTA no peripheral edema... Cardiorespiratory Assessment: See above.
--- NOTE | 2018-06-14 11:57 | ASMTCMCOM ---
CM Note CM Note Notes: Therapies have cleared pt to d/c without any needs. No other needs at this time. CM available for changes. Plan: Independent Date Signed: 06/14/2018 11:56 AM Electronically Signed By:ALEJO Burnham
[2018-06-14 13:06] VITALS: BP 120/79
--- NOTE | 2018-06-14 13:45 | PDDCSUM ---
Discharge Summary Discharge Summary: Date of Admission: 06/12/2018 Date of Discharge: 06/14/2018 Consultants: neurology (Dr Frank Delatorre), cardiology Studies: 1. Non-contrasted CT head: no acute abnormalities 2. CTA head/neck: left MCA distal branch M2/M3 occlusion 3. Brain MRI: Two acute infarcts on the left with a small cortical infarct in the peripheral left temporal, occipital, and parietal junction and small cortical infarct in the posterior left insular cortex. 4. TTE: Normal LV function. No PFO. No valvular disease. Procedures: 1. LINQ placement Discharge Diagnosis: 1. Acute ischemic CVA 2. Left MCA distal branch occlusion 3. H/o migraines Brief Hospital Course: 62yo M with history of migraines with aura presented with acute onset difficulty speaking, right blurry vision, and right arm weakness/ discoordination. He was evaluated by tele-neurology and received systemic TPA. Work up revealed an occluded distal branch of his left MCA but because of his symptom resolution, he was not transferred from this facility for mechanical thrombectomy. MRI showed 2 areas of acute infarction raising suspicion for embolic source. His ICA and vertebrobasilar systems were clean. His telemetry did not reveal atrial fibrillation. Cardiology was consulted and a LINQ was placed. His symptoms resolved over the course of the hospitalization. He was discharged on aspirin and a statin. He will get outpatient speech therapy but no PT/OT was required. Medications: Please refer to EMR for complete list. We added aspirin 81mg daily and I sent a prescription for atorvastatin 40mg daily #30 to his pharmacy. Follow Up: 1. To see cardiology in 1 week to remove vadim from LINQ 2. To see neurology (Dr Oswaldo Bell) in 4-5 weeks Physical Exam: Vitals and telemetry reviewed, no arrhythmias. Alert and oriented , no aphasia, no focal deficits. RRR without m/r/g, lungs clear, abdomen soft and nt, no edema.
--- NOTE | 2018-06-15 06:14 | CPIP ---
DATE OF PROCEDURE: 06/14/2018 PROCEDURE: Insertion of a [employer] Reveal LINQ device. The serial number is [id number]. INDICATION FOR THE PROCEDURE: Status post CVA. Rule out atrial fibrillation as a cause for CVA. PROCEDURE IN DETAIL: After informed consent was obtained, n.p.o. status was confirmed, the region of the left parasternal region was cleaned, prepped, and draped in sterile fashion. Approximately 15 c c of 1% lidocaine was utilized for local anesthesia. The skin was sharply incised with a #12 blade. The dissection tool provided with the device was used to create a tract underneath the skin at a 45 degrees angle downward. The device was inserted under the skin. Hemostasis was achieved with local pressure. The skin was closed with 4 interrupted vadim, and local pressure was applied for 10 alondra poly, followed by a sterile dressing. FINAL IMPRESSION: Successful [employer] LINQ device insertion to track for atrial fibrillation in a p atient with stroke and evidence of possible prior emboli on the basis of MRI imaging of the brain. /[id number]/MODL
== END 2018-06-14 15:37 | disposition home or self-care (01) | DRG 63 ==
LOC: EDUNIT# → F2N 10:08 → F3N 06-13 16:15
PROVIDERS: ADMIT Internal Medicine; ATTEND Internal Medicine
PROC: 3E03317 Introduction of Other Thrombolytic into Peripheral Vein, Percutaneous Approach (ICD-10-PCS; principal; 2018-06-12)
PROC: 0JH63PZ Insertion of Cardiac Rhythm Related Device into Chest Subcutaneous Tissue and Fascia, Percutaneous Approach (ICD-10-PCS; 2018-06-14)
DX: I63.512 Cerebral infarction due to unspecified occlusion or stenosis of left middle cerebral artery (principal); G43.109 Migraine with aura, not intractable, without status migrainosus; M25.562 Pain in left knee; G83.21 Monoplegia of upper limb affecting right dominant side; R47.9 Unspecified speech disturbances; H53.8 Other visual disturbances
CPT/HCPCS: 82435-PO; 82565-PO; 82947-PO; 84132-PO; 84295-PO; 84484-PO; 84520-PO; 85014-PO; 92507-GN; 92523-GN; 96374; 97161-GP; 97165-GO; 97535-GO; C1764; J2997; Q9967

== ENCOUNTER → 2018-07-18 | Outpatient (CLI) | payer OTHER | END | disposition home or self-care (01) | LOC: BMCIMAGING 08:22 | PROVIDERS: ATTEND Physician Assistant | DX: M17.12 Unilateral primary osteoarthritis, left knee (principal); M25.761 Osteophyte, right knee; M25.762 Osteophyte, left knee ==